=== PATIENT | female | born 1965 ===

== ENCOUNTER 2020-12-22 08:00 | Outpatient (CLI) | payer OTHER | END 2020-12-22 08:30 | disposition home or self-care (01) | LOC: PPH VACUNA 08:00 | DX: Z23 Encounter for immunization (principal) ==

== ENCOUNTER 2021-03-09 09:00 | Outpatient (CLI) | payer OTHER | END 2021-03-09 09:30 | disposition home or self-care (01) | LOC: PPH VACUNA 09:00 | PROVIDERS: ATTEND Emergency Medicine Pediatric Emergency Medicine | DX: Z23 Encounter for immunization (principal) ==

== ENCOUNTER 2021-05-28 09:35 | Emergency (ER) | payer OTHER ==
[~2021-05-28] VITALS: Ht 152.4 cm; Wt 71.7 kg
[2021-05-28] MEDS ORDERED: SIMVASTATIN5 MG PO ×2 (09:57)
[2021-05-28] MEDS ORDERED: ANASTROZOLE1 MG PO (09:57)
== END 2021-05-28 11:23 | disposition home or self-care (01) ==
LOC: ER 09:35
DX: S92.512A Displaced fracture of proximal phalanx of left lesser toe(s), initial encounter for closed fracture (principal); S80.11XA Contusion of right lower leg, initial encounter; S90.02XA Contusion of left ankle, initial encounter; S90.32XA Contusion of left foot, initial encounter; W18.30XA Fall on same level, unspecified, initial encounter; Y93.9 Activity, unspecified; Y92.481 Parking lot as the place of occurrence of the external cause; Y99.9 Unspecified external cause status

== ENCOUNTER 2021-10-17 07:10 | Emergency (ER) | payer OTHER ==
[~2021-10-17] VITALS: Ht 152.4 cm; Wt 71.7 kg
[~2021-10-17 07:10] MED LIST: ANASTROZOLE1 MG PO; SIMVASTATIN5 MG PO
[2021-10-17] MEDS ORDERED: METFORMIN HCL500 M4 PO (07:23)
[2021-10-17] MEDS ORDERED: SYNTHROID300 MCG PO (07:24)
== END 2021-10-17 10:44 | disposition home or self-care (01) ==
LOC: ER 07:10
DX: B34.9 Viral infection, unspecified (principal); R53.81 Other malaise; I10 Essential (primary) hypertension; E11.9 Type 2 diabetes mellitus without complications; E03.9 Hypothyroidism, unspecified; Z20.822 Contact with and (suspected) exposure to COVID-19; Z88.6 Allergy status to analgesic agent; Z88.8 Allergy status to other drugs, medicaments and biological substances; Z91.018 Allergy to other foods